=== PATIENT | female | born 1945 | race Caucasian/White ===

== ENCOUNTER 2023-09-10 11:17 | Outpatient (CLI) | payer MEDICARE | END 2023-09-10 11:18 | disposition home or self-care (01) | LOC: CSHRAD 11:17 | PROVIDERS: ATTEND Neurological Surgery | DX: M54.50 Low back pain, unspecified (principal); Z98.890 Other specified postprocedural states; M47.816 Spondylosis without myelopathy or radiculopathy, lumbar region | CPT/HCPCS: 72100 ==